=== PATIENT | female | born 1975 | race Caucasian/White ===

== ENCOUNTER 2018-01-29 08:22 | Emergency (ER) | payer SELFPAY ==
[2018-01-29 08:49] VITALS: BP 147/76; PULSE 70; TEMP 98.7; BMI 19.2
[2018-01-29] MEDS ORDERED: KETOROLAC TROMETHAMINE 60 MG/2 ML VIAL IM ONE (09:31)
[2018-01-29] MEDS ORDERED: diazePAM 5 MG TABLET PO ONE (09:31)
[2018-01-29] MEDS ORDERED: KETOROLAC TROMETHAMINE 30 MG/1 ML VIAL ONE (09:33)
[2018-01-29] MEDS ORDERED: diazePAM 2 MG TABLET ONE (09:33)
--- NOTE | 2018-01-29 09:46 | PDOC ---
History of Present Illness - General Chief Complaint: Head/Neck problem Stated Complaint: NECK PAIN Time Seen by Provider: 01/29/18 09:07 - History of Present Illness Initial Comments: 01/29/18 09:44 CHIEF COMPLAINT: neck pain HISTORY OF PRESENT ILLNESS: 42 yo F presents to [email or web address] with neck pain since this morning. Patient states she was "fine when I woke up this morning, and when I got out of the shower and reached for my towel, all of a sudden I felt my neck tighten up and there was a pain going down the right side of my arm." She denies any fever, chills, nausea, vomiting, chest pain, shortness of breath , or palpitations, and reports that the pain in her right arm has now subsided, but "my neck still hurts when I turn it." Patient indicates that when she pushes on the "right side of my neck, it actually relieves some of the tightness and pressure." No recent travel or sick contacts. PAST MEDICAL HISTORY: Denies past medical history FAMILY HISTORY: Denies SOCIAL HISTORY: Denies tobacco, alcohol, illicit drug use. SURGICAL HISTORY: Denies ALLERGIES: No known drug allergies REVIEW OF SYSTEMS General/Constitutional: Denies fever or chills. Denies weakness, weight change. HEENT: Denies change in vision. Denies ear pain or discharge. Denies sore throat. Cardiovascular: Denies chest pain or shortness of breath. Respiratory: Denies cough, wheezing, or hemoptysis. Gastrointestinal: Denies nausea, vomiting, diarrhea or constipation. Denies rectal bleeding. Genitourinary: Denies dysuria, frequency, or change in urination. Musculoskeletal: Neck pain with movement. Denies joint or muscle swelling or pain. Skin and breasts: Denies rash or easy bruising. Neurologic: Denies headache, vertigo, loss of consciousness, or loss of sensation. PHYSICAL EXAM General Appearance: Well-appearing, appropriately dressed. No apparent distress. HEENT: EOMI, PERRLA, normal ENT inspection, normal voice, TMs normal, pharynx normal. No conjunctival pallor. No photophobia, scleral icterus. Respiratory/Chest: Lungs CTAB. Cardiovascular: RRR. S1, S2. Gastrointestinal/Abdominal: Normal bowel sounds. Abdomen soft, non-distended. No tenderness or rebound tenderness. No organomegaly, pulsatile mass, guarding , hernia, hepatomegaly, splenomegaly. Musculoskeletal/Extremities: Normal inspection. FROM of all extremities, normal capillary refill. Pelvis Stable. No CVA tenderness. No tenderness to extremities, pedal edema, swelling, erythema or deformity. Integumentary: Appropriate color, dry, warm. No cyanosis, erythema, jaundice or rash Neurologic: paramedical aide II-XII intact. Fully oriented, alert. Appropriate mood/affect. Motor strength 5/5. No appreciable EOM palsy, facial droop or sensory deficit. Past History - Past Medical History Allergies/Adverse Reactions: Allergies Allergy/AdvReac Type Severity Reaction Status Date / Time No Known Allergies Allergy Verified 01/29/18 08:46 Home Medications: Ambulatory Orders Cyclobenzaprine HCl 7.5 mg PO HS PRN #7 tablet 01/29/18 Diclofenac Sodium 50 mg PO BID #14 tablet. 01/29/18 Asthma: Yes COPD: No Other medical history: MIGRANES - Suicide/Smoking/Psychosocial Hx Smoking History: Current every day smoker Have you smoked in the past 12 months: Yes Number of Cigarettes Smoked Daily: 6 Information on smoking cessation initiated: No Hx Alcohol Use: No Drug/Substance Use Hx: No Substance Use Type: None Hx Substance Use Treatment: No *Physical Exam - Vital Signs Last Vital Signs Temp Pulse Resp BP Pulse Ox 98.7 F 70 19 147/76 100 01/29/18 08:46 01/29/18 08:46 01/29/18 08:46 01/29/18 08:46 01/29/18 08:46 ED Treatment Course - ADDITIONAL ORDERS Additional order review: Laboratory Results 01/29/18 09:00 Urine HCG, Qual Negative - Medications Given in the ED: ED Medications Discontinued Medications Generic Name Dose Route Start Last Admin Trade Name Freq PRN Reason Stop Dose Admin Diazepam 2 mg 01/29/18 09:31 01/29/18 09:36 Valium - PO 01/29/18 09:32 2 mg ONCE ONE Administration Ketorolac Tromethamine 30 mg 01/29/18 09:31 01/29/18 09:36 Toradol Injection - IM 01/29/18 09:32 30 mg ONCE ONE Administration Medical Decision Making - Medical Decision Making 01/29/18 09:50 42 yo F presents to [facility] with neck pain since this morning. -Upreg -toradol, valium *DC/Admit/Observation/Transfer Diagnosis at time of Disposition: Cervical paraspinal muscle spasm - Discharge Dispostion Disposition: HOME Condition at time of disposition: Stable Decision to Admit order: No - Prescriptions Prescriptions: Cyclobenzaprine HCl 7.5 mg PO HS PRN #7 tablet PRN Reason: neck stiffness Diclofenac Sodium 50 mg PO BID #14 tablet.dr - Referrals Referrals: Misael Jackson MD [Staff Physician] - - Patient Instructions Printed Discharge Instructions: DI for Neck Pain Additional Instructions: Please take medications as prescribed. If your pain persist for more than 2-3 days, please follow up with your PCP as discussed. If you develop fever, nausea, vomiting, chills, severe headache, or any new or worsening symptoms, please return to the ER immediately. - Post Discharge Activity
== END 2018-01-29 10:33 | disposition home or self-care (01) ==
LOC: JERFT 08:22
PROC: 3E0233Z Introduction of Anti-inflammatory into Muscle, Percutaneous Approach (ICD-10-PCS; principal; 2018-01-29)
DX: M62.838 Other muscle spasm (principal); X50.1XXA Overexertion from prolonged static or awkward postures, initial encounter; Y93.E1 Activity, personal bathing and showering; Y92.031 Bathroom in apartment as the place of occurrence of the external cause
CPT/HCPCS: 84703; 99281-25

== ENCOUNTER 2020-12-08 18:01 | Emergency (ER) | payer OTHER ==
[2020-12-08 18:11] VITALS: BP 108/76; PULSE 105; TEMP 97.8; BMI 18.8
[2020-12-08] MEDS ORDERED: RABIES IMMUNE GLOBULIN 300 UNITS/1 ML VIAL IM ONE (18:35)
[2020-12-08] MEDS ORDERED: RABIES VACCINE (PCEC)/PF 2.5 UNIT/VIAL IM ONE ×2 (18:35→18:37)
[2020-12-08] MEDS ORDERED: DIPHTH,PERTUSS(ACELL),TET 0.5 ML DISP.SYRIN IM ONE ×2 (18:35→18:37)
[2020-12-08] MEDS ORDERED: IBUPROFEN 600 MG TABLET (FP) PO ONE ×2 (18:36→18:37)
== END 2020-12-08 19:34 | disposition home or self-care (01) ==
LOC: JERFT 18:01
PROC: 3E0234Z Introduction of Serum, Toxoid and Vaccine into Muscle, Percutaneous Approach (ICD-10-PCS; principal; 2020-12-08)
PROC: 3E0234Z Introduction of Serum, Toxoid and Vaccine into Muscle, Percutaneous Approach (ICD-10-PCS; 2020-12-08)
DX: S81.852A Open bite, left lower leg, initial encounter (principal); Z29.14 Encounter for prophylactic rabies immune globulin
CPT/HCPCS: 90375; 90471; 90675; 90715; 99284-25

== ENCOUNTER 2020-12-15 14:41 | Emergency (ER) | payer OTHER ==
[2020-12-15 14:50] VITALS: BP 113/60; PULSE 95; TEMP 98.9; BMI 18.3
[2020-12-15] MEDS ORDERED: RABIES VACCINE (PCEC)/PF 2.5 UNIT/VIAL IM ONE ×2 (15:00)
== END 2020-12-15 15:28 | disposition home or self-care (01) ==
LOC: JERFT 14:41
PROC: 3E0234Z Introduction of Serum, Toxoid and Vaccine into Muscle, Percutaneous Approach (ICD-10-PCS; principal; 2020-12-15)
DX: Z29.14 Encounter for prophylactic rabies immune globulin (principal)
CPT/HCPCS: 90675; 99284-25

== ENCOUNTER 2020-12-23 18:22 | Emergency (ER) | payer OTHER ==
[2020-12-23 18:27] VITALS: BP 119/81; PULSE 88; TEMP 98.9; BMI 18.8
[2020-12-23] MEDS ORDERED: DIPHTH,PERTUSS(ACELL),TET 0.5 ML DISP.SYRIN IM ONE (18:29)
[2020-12-23] MEDS ORDERED: RABIES VACCINE (PCEC)/PF 2.5 UNIT/VIAL IM ONE ×2 (18:30→18:49)
== END 2020-12-23 18:55 | disposition home or self-care (01) ==
LOC: JERFT 18:22
PROC: 3E0234Z Introduction of Serum, Toxoid and Vaccine into Muscle, Percutaneous Approach (ICD-10-PCS; principal; 2020-12-23)
DX: Z20.3 Contact with and (suspected) exposure to rabies (principal)
CPT/HCPCS: 90675; 99283-25

== ENCOUNTER 2021-06-27 08:50 | Emergency (ER) | payer OTHER ==
[2021-06-27 09:13] VITALS: BP 128/91; PULSE 110; TEMP 99.8; BMI 18.6
== END 2021-06-27 13:08 | disposition home or self-care (01) ==
LOC: JER 08:50
DX: U07.1 COVID-19 (principal)
CPT/HCPCS: 87804; 99283-25; C9803; U0003; U0005

== ENCOUNTER 2021-08-13 10:08 | Emergency (ER) | payer OTHER ==
[2021-08-13 10:17] VITALS: BP 97/66; PULSE 119; TEMP 97.8; BMI 18.3
[2021-08-13 11:44] LABS: EPI CELLS 11 /uL (0-25.1); HYALINE CASTS 6 /uL (0-3.1); URINE APPEARANCE CLEAR; URINE BACTERIA 5 /uL (0-1359); URINE BILIRUBIN NEGATIVE (NEGATIVE); URINE COLOR DK YELLOW; URINE GLUCOSE (UA) NEGATIVE (NEGATIVE); URINE KETONE TRACE (NEGATIVE); URINE LEUK ESTERASE TRACE (NEGATIVE); URINE NITRITE NEGATIVE (NEGATIVE); URINE PROTEIN 1+ (NEGATIVE); URINE WBC 63 /uL (0-25.8)
[2021-08-13 14:35] LABS: URINE RBC 49.6 /uL (0-23.9)
== END 2021-08-13 11:20 | disposition home or self-care (01) ==
LOC: JERFT 10:08
DX: N76.89 Other specified inflammation of vagina and vulva (principal)
CPT/HCPCS: 36415; 81003; 87070; 87086; 87205; 87491; 87591; 99283-25